=== PATIENT | female | born 1935 | race Caucasian/White ===

== ENCOUNTER 2019-12-13 23:03 | Inpatient (IN) | payer OTHER ==
[~2019-12-13] VITALS: Ht 144.8 cm; Wt 41.7 kg
--- NOTE | 2019-12-13 23:29 | NUR ---
BIBPA FOR [facility] PSYCH ADMISSION FROM [facility] PER GITA GAFFNEY. NEEDS PSYCH EVAL AND MED CLEARANCE BY . LINDSAY AAOX4. AMBULATORY. VSS. PLACED ON MONITOR AND PULSE OX.
[2019-12-13 23:48] LABS: BASOPHILS % (AUTO) 0.1 % (0.0-2.0); EOSINOPHILS % (AUTO) 0.4 % (0.0-6.0); HEMATOCRIT 43 % (33-45); HEMOGLOBIN 14.5 g/dL (11.5-14.8); LYMPHOCYTES # (AUTO) 0.9 /CMM (0.8-4.8); LYMPHOCYTES % (AUTO) 9.7 % (20.0-44.0); MEAN CORPUSCULAR HGB CONC 34 g/dl (31.0-36.0); MEAN CORPUSCULAR VOLUME 93 fL (82-100); MONOCYTES # (AUTO) 0.9 /CMM (0.1-1.30); MONOCYTES % (AUTO) 10.6 % (2.0-12.0); NEUTROPHILS # (AUTO) 7.1 /CMM (1.8-8.9); NEUTROPHILS % (AUTO) 79.2 % (43.0-81.0); PLATELET COUNT (AUTO) 177 /CMM (150-450); RED BLOOD CELL COUNT(AUTO) 4.64 MIL/uL (4.0-5.2); WHITE BLOOD COUNT (AUTO) 8.9 K/uL (4.3-11.0)
[2019-12-13 23:52] LABS: APPEARANCE,URINE Clear (CLEAR); BILIRUBIN,URINE MODERATE (NEGATIVE); BLOOD, URINE Small Ery/uL (NEGATIVE); COLOR,URINE Yellow (YELLOW); KETONES,URINE 15 (NEGATIVE); LEUKOCYTE ESTERASE ,URINE Trace (NEGATIVE); NITRITE, URINE Negative (NEGATIVE); PH,URINE 5.5 (5.0-8.0); PROTEIN,URINE 30 mg/dl (NEGATIVE); UGLUCOSE Negative (NEGATIVE)
--- NOTE | 2019-12-13 23:55 | NUR ---
COVID SWAB DONE AND SENT TO LAB
[2019-12-14 00:04] LABS: BACTERIA,URINE Many /HPF (None Seen); SQUAMOUS EPITHELIAL CELL,UR Few /HPF (None Seen); WBC,URINE 51-80 /HPF (0-3)
[2019-12-14 00:09] LABS: CALCIUM, SERUM 9.8 mg/dL (8.5-10.1); CARBON DIOXIDE 27 mmol/L (21-32); CHLORIDE 102 mmol/L (98-107); GLUCOSE 107 mg/dL (74-106); POTASSIUM 3.6 mmol/L (3.5-5.1); SODIUM SERUM 140 mmol/L (136-145); UREA NITROGEN, BLOOD 40 mg/dL (7-18)
[2019-12-14 00:14] LABS: ALANINE AMINOTRANSFERASE 19 U/L (12-78); ALBUMIN 3.9 g/dL (3.4-5.0); ALCOHOL, BLOOD < 3 mg/dL (0-0); ALKALINE PHOSPHATASE 65 U/L (46-116); ASPARTATE AMINOTRANSFERASE 18 U/L (15-37); BILIRUBIN,DIRECT 0.2 mg/dL (0.0-0.2); BILIRUBIN,TOTAL 0.8 mg/dL (0.2-1.0)
[2019-12-14 00:21] LABS: ACETAMINOPHEN < 2 ug/ml (10-30); SALICYLATE 1.5 mg/dL (2.8-20.0)
--- NOTE | 2019-12-14 00:57 | NUR ---
BIENVENIDO LUTZ LCSW PAGED PER ER ORDER.
--- NOTE | 2019-12-14 01:30 | NUR ---
BIENVENIDO HAUSERW AT BEDSIDE TO KISHA JACOBSEN.
--- NOTE | 2019-12-14 02:05 | NUR ---
PT RESTING COMFORTABLY IN BED. VSS. NO ACUTE DISTRESS NOTED. WILL CONTINUE TO MONITOR
[2019-12-14] MEDS ORDERED: LOSARTAN POTASSIUM 25 MG TABLET PO STA (02:29)
[2019-12-14] MEDS ORDERED: MIRT15TA PO (02:32)
[2019-12-14] MEDS ORDERED: QUET25TA PO ×2 (02:32)
[2019-12-14] MEDS ORDERED: LOSA25TA27 PO (02:32)
[2019-12-14] MEDS ORDERED: LEVO100T9 PO (02:32)
[2019-12-14] MEDS ORDERED: MELA3TAB41 PO (02:32)
[2019-12-14] MEDS ORDERED: LOSARTAN POTASSIUM 25 MG TABLET ONE (02:40)
--- NOTE | 2019-12-14 02:42 | NUR ---
MED LIST UPDATED.
--- NOTE | 2019-12-14 03:00 | NUR ---
REPORT GIVEN TO LILIAM HERNANDEZ FOR AV[facility]
--- NOTE | 2019-12-14 03:46 | NUR ---
PT TRANSFERRED TO ROOM IN STABLE CONDITION
[2019-12-14] MEDS ORDERED: ACETAMINOPHEN 325 MG TABLET PO PRN (04:00)
[2019-12-14] MEDS ORDERED: MAGNESIUM HYDROXIDE 30 ML UDC PO PRN (04:00)
[2019-12-14] MEDS ORDERED: MAG HYDROX/AL HYDROX/SIMETH 30 ML UDC PO PRN (04:00)
[2019-12-14] MEDS ORDERED: LORAZEPAM 0.5 MG TABLET PO PRN (04:00)
[2019-12-14 04:07] VITALS: BP 134/80
--- NOTE | 2019-12-14 04:25 | NUR ---
ADMISSION NOTES: ADMITTED THIS 84Y/O FEMALE PATIENT ADMIT FROM [facility] ED / INTIALLY FROM [facility],, ADMITTED TO GPS ON 5150 HOLD, PER HOLD DANGER TO OTHERS GD , INCREASED AGITATION STRIKING OUT BEHAVIOR AND HIT STAFF MEMBER IN THE FACE LAST WEEK, SCREAMING YELLING FIGHTING WITH STAFF MEMEBER,UPON FACE TO FACE ASSESSMENT PATIENT IS A&O X , 1,2 ANXIOUS ,DISORGNIZED PARANOID YELLING SCREAMING , TALKATIVE, HYPERVERBAL, PARANOID,DISHELVED ,EASILY GETS AGITATED,UNCOOPERTIVE, DENIES SI /HI AT THIS TIME, PT. IS POOR HISTORIAN, POOR INSIGHT ,POOR JUDGEMENT , PT. REFUSED TO SIGNS ADMISSION CONSENT PAPERS , DUE TO MENTAL STATUS / UNCOOPERTIVE AGITATION , PT. REFUSED INTITAALY BLOOD SUGAR CHECK , ENCOURAGED, EXPLAINED RISKS AND BENEFITS STILL REFUSED, PER PT. I DONT WANTS CHECK AT THIS TIME , BOTH MD AWARE AND NOTIFIED OF THE ADMISSION, BELONGINGS CONTRABAND WERE DONE , NURSING ASSESSMENT DONE ,PT. RIGHTS DISCUSS BY SATELLITE TELEVISION INSTALLER , PROVIDE THE PT. WITH HANDBOOK, AND MEDICATIONS GUIDE, ENVIRONMENTAL SAFETY CHECK DONE, ENCOURAGED PT. VERBALIZED ANY FEELING CONCERN TO STAFF, ORIENT TO UNIT POLICY, NO ACUTE DISTRESS NOTED,VITAL SIGNS WNL ,DENIES ANY PAIN AT THIS TIME,WILL CONTINUE TO MONITOR FOR Q15 SAFETY AND BEHAVIOR. Addendum: 12/14/19 at 0442 by JUAN GIBSON RN DISREGARD THIS NURSING NOTES, WRONG CHARTING , PLEASE SEE NEXT NURSING NOTES
--- NOTE | 2019-12-14 04:28 | NUR ---
ADMISSION NOTES: ADMITTED THIS 84Y/O MALE PATIENT ADMIT FROM [facility] ED / INTIALLY FROM [facility], ADMITTED TO GPS ON 5150 HOLD, GD , DISORGNIZED, PARANOID AND DELUSIONAL PT. THINKS THE FACILITY IS TRYING TO MAKE HER HOT AND HURT HER AND PT. THINKS PEOPLE AT THE FACILITY ARE OUT TO HURT HER, PT. HAS POOR INSIGHT AND IMPULSE CONTROL AND HER JUDEGMNET IS IMPARIED ,UPON FACE TO FACE ASSESSMENT PATIENT IS A&O X 1,2 ANXIOUS ,DISORGNIZED PARANOID , DELUSIONAL TALKATIVE, , PARANOID,DISHELVED ,EASILY GETS AGITATED,UNCOOPERTIVE, DENIES SI /HI AT THIS TIME, PT. IS POOR HISTORIAN, POOR INSIGHT ,POOR JUDGEMENT , PT. REFUSED TO SIGNS ADMISSION CONSENT PAPERS , DUE TO MENTAL STATUS / CONFUSION , BOTH MD AWARE AND NOTIFIED OF THE ADMISSION, BELONGINGS CONTRABAND WERE DONE , NURSING ASSESSMENT DONE ,PT. RIGHTS DISCUSS BY JOINTER SUBMARINE CABLE , PROVIDE THE PT. WITH HANDBOOK, AND MEDICATIONS GUIDE, ENVIRONMENTAL SAFETY CHECK DONE, ENCOURAGED PT. VERBALIZED ANY FEELING CONCERN TO STAFF, ORIENT TO UNIT POLICY, NO ACUTE DISTRESS NOTED,VITAL SIGNS WNL ,DENIES ANY PAIN AT THIS TIME,WILL CONTINUE TO MONITOR FOR Q15 SAFETY AND BEHAVIOR.
[2019-12-14] MEDS ORDERED: BLOOD SUGAR DIAGNOSTIC 1 EACH STRIP IN ONE (04:30)
[2019-12-14] MEDS ORDERED: AMLO5TAB9 PO (04:36)
[2019-12-14] MEDS ORDERED: CHOL200010 PO (04:39)
[2019-12-14] MEDS ORDERED: DOCU100C36 PO (04:43)
[2019-12-14] MEDS ORDERED: OLAN5TAB3 PO (04:45)
[2019-12-14] MEDS ORDERED: PEG15DRO2 OP (04:50)
[2019-12-14] MEDS ORDERED: VIT1CAPS44 PO (04:51)
--- NOTE | 2019-12-14 07:07 | NUR ---
GPS RN OPENING NOTES RECEIVED PATIENT RESTING IN BED AT THIS TIME, AOX1-2,NO SOB NOTED, NO S/S OF ANY ACUTE DISTRESS NOTED, NO C/O PAIN AT THIS TIME. PT IS COOPERATIVE AND CALM WITH CARE AND EASILY REDIRECTED. PATIENT APPEARS SUSPICIOUS AND ANXIOUS. PT DENIES SI/HI AT THIS TIME. ENVIRONMENTAL SAFETY CHECKS . SAFETY PRECAUTIONS IN PLACE AND MAINTAINED AT ALL TIMES, BED IN LOWEST LOCKED POSITION, SIDE RAILS UP, CALL LIGHT WITHIN REACH. WILL CONTINUE TO MONITOR Q 15 MIN, FOR SAFETY, MOOD,BEHAVIOR AND CONTINUE WITH PLAN OF CARE
[2019-12-14 08:00] VITALS: BP 163/80
[2019-12-14] MEDS: LEVOTHYROXINE SODIUM 100 MCG TABLET PO SCH (08:01)
[2019-12-14] MEDS: ENSURE ENLIVE CHOC 237 ML CAN PO SCH ×2 (08:01→16:51)
[2019-12-14] MEDS ORDERED: QUETIAPINE FUMARATE 25 MG TABLET PO SCH ×2 (09:00→22:00)
[2019-12-14] MEDS: Z GUARD REMEDY 2 OZ OINT TP SCH (09:57)
[2019-12-14] MEDS: OXCARBAZEPINE 150 MG TABLET PO SCH ×2 (12:39→16:50)
[2019-12-14] MEDS: risperiDONE-M 0.5 MG TAB.RAPDIS PO SCH ×2 (12:39→16:50)
--- NOTE | 2019-12-14 15:05 | NUR ---
Inittial Discharge Plan: The patient currently resides at [facility] [[address] [facility] [address]. [facility] [address]; [phone]]. The patient stated she was uncertain about returning to [facility]. HAYLEE called [facility] and spoke to [place], who stated the patient may return once ready for discharge.
--- NOTE | 2019-12-14 15:06 | NUR ---
Point of Contact: This SW called the patient's son, Eder Mcdonald [phone] to collect collateral information and discuss discharge polanning. Eder informed SW that he was the pt.'s DPOA in the past, however, patient revoked his POA abilities. Per Eder, the patient's daughter, Mattie Roac [phone] is not involved in the patient's care. Per Eder it is difficult for him to assist as he resides in the [facility] and pt. nay benefit from Public Guardian. Carli Rabbit DresserDianne to follow up with referral for Public Guardian.
--- NOTE | 2019-12-14 15:38 | NUR ---
DOCTOR SCHROEDER MADE AWARE TO RECONCILE PATIENTS' MEDICATIONS. WILL CONTINUE TO MONITOR
[2019-12-14 16:00] VITALS: BP 155/85
--- NOTE | 2019-12-14 18:47 | NUR ---
GPS RN CLOSING NOTES PATIENT AWAKE AND SITTING IN DINING ROOM AT THIS TIME. PT REMAINED STABLE THROUGHOUT SHIFT. PT KEPT CLEAN AND DRY. ALL CARE, NEEDS, MEDICATIONS AND TREATMENT ADMINISTERED ANTICIPATED PER ORDER. SAFETY PRECAUTIONS IN PLACE AND MAINTAINED AT ALL TIMES, BED IN LOWEST LOCKED POSITION, SIDE RAILS UP, CALL LIGHT WITHIN REACH. WILL ENDORSE TO HULL DRAFTER NURSE FOR AVNI
[2019-12-14] MEDS: CEPHALEXIN MONOHYDRATE 250 MG CAPSULE PO SCH (19:02)
--- NOTE | 2019-12-14 19:41 | NUR ---
GPS RN NOTES RECEIVED PATIENT AWAKE IN SAV[facility]NAH CHAIR BY DINING ROOM. PATIENT IS ALERT AND ORIENTED X 1-2. CONFUSION WITH PARANOIA WITH SUSPICIONS. PT IS BREATHING EVEN AND UNLABORED ON ROOM AIR. SHOWS NO SIGNS OF ACUTE RESPIRATORY DISTRESS, NO ACUTE PAIN. PATIENT IS NON- COMPLIANT WITH MEDICATIONS. DENIES SI/HI. SAFETY PRECAUTIONS IN PLACE. BED IN LOWEST POSITION, LOCKED, AND SIDE RAILS UP. WILL CONTINUE TO MONITOR.
[2019-12-14 21:07] VITALS: BP 102/62
[2019-12-14] MEDS: LOSARTAN POTASSIUM 25 MG TABLET PO SCH (21:20)
[2019-12-14] MEDS: AMLODIPINE BESYLATE 5 MG TABLET PO SCH (21:46)
[2019-12-14] MEDS ORDERED: MIRTAZAPINE 15 MG TABLET PO SCH (22:00)
[2019-12-15] MEDS: CEPHALEXIN MONOHYDRATE 250 MG CAPSULE PO SCH ×3 (06:05→21:50)
[2019-12-15] MEDS: LEVOTHYROXINE SODIUM 100 MCG TABLET PO SCH (06:05)
[2019-12-15 07:24] LABS: BASOPHILS % (AUTO) 0.1 % (0.0-2.0); EOSINOPHILS % (AUTO) 0.9 % (0.0-6.0); HEMATOCRIT 43 % (33-45); HEMOGLOBIN 14.1 g/dL (11.5-14.8); LYMPHOCYTES # (AUTO) 1.2 /CMM (0.8-4.8); LYMPHOCYTES % (AUTO) 13.7 % (20.0-44.0); MEAN CORPUSCULAR HGB CONC 33 g/dl (31.0-36.0); MEAN CORPUSCULAR VOLUME 93 fL (82-100); MONOCYTES % (AUTO) 11.3 % (2.0-12.0); NEUTROPHILS # (AUTO) 6.5 /CMM (1.8-8.9); PLATELET COUNT (AUTO) 156 /CMM (150-450); RED BLOOD CELL COUNT(AUTO) 4.58 MIL/uL (4.0-5.2); WHITE BLOOD COUNT (AUTO) 8.8 K/uL (4.3-11.0)
[2019-12-15 07:30] LABS: CALCIUM, SERUM 9.4 mg/dL (8.5-10.1); CREATININE 0.9 mg/dL (0.6-1.3); POTASSIUM 3.5 mmol/L (3.5-5.1)
[2019-12-15 08:00] VITALS: BP_SYST 151; BP_SYST 161; BP_DIAS 75
[2019-12-15] MEDS: ENSURE ENLIVE CHOC 237 ML CAN PO SCH ×2 (08:33→16:22)
[2019-12-15] MEDS: risperiDONE-M 0.5 MG TAB.RAPDIS PO SCH ×2 (08:33→16:22)
[2019-12-15] MEDS: OXCARBAZEPINE 150 MG TABLET PO SCH ×2 (08:33→16:21)
[2019-12-15] MEDS: Z GUARD REMEDY 2 OZ OINT TP SCH (09:04)
[2019-12-15 16:00] VITALS: BP 129/78
[2019-12-15 20:17] VITALS: BP 154/83
[2019-12-15] MEDS: LOSARTAN POTASSIUM 25 MG TABLET PO SCH (21:55)
[2019-12-15] MEDS: AMLODIPINE BESYLATE 5 MG TABLET PO SCH (21:56)
[2019-12-16] MEDS: CEPHALEXIN MONOHYDRATE 250 MG CAPSULE PO SCH ×3 (05:35→21:17)
[2019-12-16] MEDS: LEVOTHYROXINE SODIUM 100 MCG TABLET PO SCH (07:11)
[2019-12-16 08:00] VITALS: BP 154/81
[2019-12-16] MEDS: risperiDONE-M 0.5 MG TAB.RAPDIS PO SCH ×2 (08:30→16:56)
[2019-12-16] MEDS: OXCARBAZEPINE 150 MG TABLET PO SCH ×2 (08:30→16:56)
[2019-12-16] MEDS: ENSURE ENLIVE CHOC 237 ML CAN PO SCH ×2 (08:32→16:56)
[2019-12-16] MEDS: Z GUARD REMEDY 2 OZ OINT TP SCH (08:33)
--- NOTE | 2019-12-16 09:00 | NUR ---
RN NOTE- PT IN CHAIR FLAT AFFECT MINIMAL EYE CONTACT SLOW TO RESPOND COMPLAINING ABOUT TAKING MORNING RX STATES ' IM FULL, I CANT TAKE THAT STUFF. ITS TOO MUCH" HOWEVER PT IS MED COMPLIANT PO INTAKE FAIR PARANOID GUARDED TERELL ALL.
[2019-12-16 15:49] VITALS: BP 99/69
[2019-12-16 19:50] VITALS: BP 109/60
[2019-12-16] MEDS: AMLODIPINE BESYLATE 5 MG TABLET PO SCH (21:17)
[2019-12-16] MEDS: LOSARTAN POTASSIUM 25 MG TABLET PO SCH (21:18)
[2019-12-17] MEDS: CEPHALEXIN MONOHYDRATE 250 MG CAPSULE PO SCH ×3 (04:46→21:10)
[2019-12-17] MEDS: ENSURE ENLIVE CHOC 237 ML CAN PO SCH ×2 (07:50→16:26)
[2019-12-17] MEDS: LEVOTHYROXINE SODIUM 100 MCG TABLET PO SCH (07:51)
[2019-12-17 08:00] VITALS: BP 136/94
[2019-12-17] MEDS: risperiDONE-M 0.5 MG TAB.RAPDIS PO SCH ×3 (08:10→16:26)
[2019-12-17] MEDS: OXCARBAZEPINE 150 MG TABLET PO SCH ×3 (08:11→16:27)
[2019-12-17] MEDS: Z GUARD REMEDY 2 OZ OINT TP SCH (08:11)
--- NOTE | 2019-12-17 09:00 | NUR ---
RN NOTE- PARANOID, FEARFUL GUARDED MED COMPLIANT THOUGH IT TAKES AWHILE TO GT HER TO TAKE RX PO INTAKE GOOD USING BR W ASSIST DENIES SI HI AH VH BUT BEHAVIOR SHOWS OTHERWISE.
--- NOTE | 2019-12-17 12:53 | NUR ---
UR Note: This tag writer called and left a voicemail for Mercedes ( ) at [facility] covering for Tiffanie (ph:[phone] fax: [phone]) to follow up with authorization and clinicals. Waiting for a return call. Addendum: 12/17/19 at 1310 by JAY STOCK Authorization # [id number]
--- NOTE | 2019-12-17 13:12 | NUR ---
UR Note: Authorization # [id number] HAYLEE spoke with Mercedes ( ) [facility], (fax: [phone]) and faxed her the patient's clinicals, progress notes, medication and labs.
--- NOTE | 2019-12-17 15:04 | NUR ---
Group Note: SW invited patient to participate in group therapy to discuss the topic of Problem Solving. Patient presents confused, disoriented and disorganized and is unable to engage in a meaningful conversation. Patient did not participate in group at this time.
[2019-12-17 16:00] VITALS: BP 125/70
[2019-12-17 19:49] VITALS: BP 130/58
[2019-12-17] MEDS: LOSARTAN POTASSIUM 25 MG TABLET PO SCH (21:59)
[2019-12-17] MEDS: AMLODIPINE BESYLATE 5 MG TABLET PO SCH (22:00)
[2019-12-18] MEDS: CEPHALEXIN MONOHYDRATE 250 MG CAPSULE PO SCH ×3 (05:51→20:45)
[2019-12-18] MEDS: LEVOTHYROXINE SODIUM 100 MCG TABLET PO SCH (06:41)
[2019-12-18 08:00] VITALS: BP 161/87
[2019-12-18] MEDS: OXCARBAZEPINE 150 MG TABLET PO SCH ×3 (08:14→16:18)
[2019-12-18] MEDS: risperiDONE-M 0.5 MG TAB.RAPDIS PO SCH ×4 (08:15→20:45)
[2019-12-18] MEDS: Z GUARD REMEDY 2 OZ OINT TP SCH (08:18)
[2019-12-18] MEDS: ENSURE ENLIVE CHOC 237 ML CAN PO SCH ×2 (08:18→16:18)
--- NOTE | 2019-12-18 09:00 | NUR ---
RN NOTE- PT OPPOSITIONAL TO CARE THOUGH MED COMPLIANT, NEEDS ATTENDED, WITHDRAWN FEARFUL. PO INTAKE FAIR DENIES SI HI AH VH
--- NOTE | 2019-12-18 14:17 | NUR ---
UR Note: Authorization # [id number] SW left a voicemail for CristalShizzlrjamey ( ) [facility], (fax: [phone]) and faxed her the patient's clinical progress notes, medication and labs.
[2019-12-18] MEDS: MEMANTINE HCL 5 MG TABLET PO SCH ×2 (14:23→20:45)
--- NOTE | 2019-12-18 15:40 | NUR ---
Group Note: SW encouraged pt to attend group therapy on 12/18/19 on the topic of discharge planning. Pt refused to attend but was willing to speak individually. Pt stated that she did not feel safe on the unit and wanted to be discharged as soon as possible so that she can go somewhere safe.
[2019-12-18 16:00] VITALS: BP 130/75
[2019-12-18 19:52] VITALS: BP 118/62
[2019-12-18] MEDS: AMLODIPINE BESYLATE 5 MG TABLET PO SCH (22:59)
[2019-12-18] MEDS: LOSARTAN POTASSIUM 25 MG TABLET PO SCH (22:59)
[2019-12-18] MEDS: TEMAZEPAM 7.5 MG CAPSULE PO PRN (23:00)
[2019-12-19] MEDS: CEPHALEXIN MONOHYDRATE 250 MG CAPSULE PO SCH ×3 (05:13→20:55)
[2019-12-19] MEDS: LEVOTHYROXINE SODIUM 100 MCG TABLET PO SCH (07:00)
[2019-12-19 08:00] VITALS: BP 141/66
[2019-12-19] MEDS: ENSURE ENLIVE CHOC 237 ML CAN PO SCH ×2 (08:00→17:00)
[2019-12-19] MEDS: MEMANTINE HCL 5 MG TABLET PO SCH ×2 (09:34→20:55)
[2019-12-19] MEDS: Z GUARD REMEDY 2 OZ OINT TP SCH (09:34)
[2019-12-19] MEDS: OXCARBAZEPINE 150 MG TABLET PO SCH ×3 (09:34→17:49)
[2019-12-19] MEDS: risperiDONE-M 0.5 MG TAB.RAPDIS PO SCH ×4 (09:34→20:55)
--- NOTE | 2019-12-19 11:16 | NUR ---
Group Note: SW encouraged pt to participate in group on the topic of dealing with anxiety. Patient was talking on the telephone and did not want to participate at this time.
[2019-12-19 16:00] VITALS: BP 144/79
[2019-12-19 19:28] VITALS: BP 149/76
[2019-12-19] MEDS: LOSARTAN POTASSIUM 25 MG TABLET PO SCH (22:17)
[2019-12-19] MEDS: AMLODIPINE BESYLATE 5 MG TABLET PO SCH (22:17)
[2019-12-19] MEDS: TEMAZEPAM 7.5 MG CAPSULE PO PRN (22:30)
[2019-12-20] MEDS: CEPHALEXIN MONOHYDRATE 250 MG CAPSULE PO SCH ×3 (05:46→21:30)
[2019-12-20] MEDS: LEVOTHYROXINE SODIUM 100 MCG TABLET PO SCH (06:19)
[2019-12-20 08:00] VITALS: BP 158/94
[2019-12-20] MEDS: ENSURE ENLIVE CHOC 237 ML CAN PO SCH ×2 (08:37→17:09)
[2019-12-20] MEDS: Z GUARD REMEDY 2 OZ OINT TP SCH (08:38)
[2019-12-20] MEDS: risperiDONE-M 0.5 MG TAB.RAPDIS PO SCH ×4 (08:38→21:30)
[2019-12-20] MEDS: MEMANTINE HCL 5 MG TABLET PO SCH ×2 (08:38→21:31)
[2019-12-20] MEDS: OXCARBAZEPINE 150 MG TABLET PO SCH ×3 (08:38→17:08)
[2019-12-20 16:00] VITALS: BP 116/66
[2019-12-20 20:08] VITALS: BP 130/71
[2019-12-20] MEDS: LOSARTAN POTASSIUM 25 MG TABLET PO SCH (21:54)
[2019-12-20] MEDS: AMLODIPINE BESYLATE 5 MG TABLET PO SCH (21:55)
[2019-12-20] MEDS: TEMAZEPAM 7.5 MG CAPSULE PO PRN (22:06)
--- NOTE | 2019-12-20 22:14 | NUR ---
GPS RN NOTES: AT 2200 PATIENT COMPLAINED OF INSOMNIA. RESTORIL 7.5MG 1 CAP GIVEN PO PRN AT 2206. WILL CONTINUE TO MONITOR.
[2019-12-21] MEDS: CEPHALEXIN MONOHYDRATE 250 MG CAPSULE PO SCH ×2 (05:14→13:03)
[2019-12-21] MEDS: LEVOTHYROXINE SODIUM 100 MCG TABLET PO SCH (07:05)
[2019-12-21] MEDS: risperiDONE-M 0.5 MG TAB.RAPDIS PO SCH ×2 (07:44→16:36)
[2019-12-21] MEDS: OXCARBAZEPINE 150 MG TABLET PO SCH ×3 (07:44→16:36)
[2019-12-21] MEDS: ENSURE ENLIVE CHOC 237 ML CAN PO SCH ×2 (07:45→16:35)
[2019-12-21] MEDS: Z GUARD REMEDY 2 OZ OINT TP SCH (07:45)
[2019-12-21] MEDS: MEMANTINE HCL 5 MG TABLET PO SCH ×2 (07:45→21:35)
[2019-12-21 08:30] VITALS: BP 159/78
--- NOTE | 2019-12-21 11:14 | NUR ---
UR NOTE: HAYLEE contacted Tiffanie trimming caser at [facility] ([phone]) and left a voicemail requesting a call back to provide updated information.
--- NOTE | 2019-12-21 12:44 | NUR ---
FACILITY CONTACT: HAYLEE contacted [facility] [[address] [address]. [facility] [address]; [phone]] and spoke with Anjelica, clinical social work therapist to inform her pt will be discharged on Tuesday12/24/19. Per Anjelica, she is requiring a recent COVID test and agrees with discharge plan.
--- NOTE | 2019-12-21 12:54 | NUR ---
UR NOTE: HAYLEE contacted Tiffanie, case management assistant at [facility] ([phone]) and informed her pt will discharged on Tuesday12/24/19. Per Beata she will arrange for transportation at 1:00pm and also requested prescriptions be faxed to .
--- NOTE | 2019-12-21 12:58 | NUR ---
FAMILY CONTACT: HAYLEE called pts son, Eder Mcdonald [phone] and left a voicemail informing him pt will be discharged on Tuesday12/24/19 at 1:00pm back to the assisted living.
[2019-12-21 16:00] VITALS: BP 151/76
--- NOTE | 2019-12-21 18:22 | NUR ---
GPS/RN pt refused covid 19 swab offered x3. will endorse to material handler 2nd shift to follow up
[2019-12-21 19:39] VITALS: BP 149/81
[2019-12-21] MEDS: risperiDONE 1 MG TABLET PO SCH (21:35)
[2019-12-21] MEDS: AMLODIPINE BESYLATE 5 MG TABLET PO SCH (21:35)
[2019-12-21] MEDS: LOSARTAN POTASSIUM 25 MG TABLET PO SCH (21:36)
--- NOTE | 2019-12-22 05:56 | NUR ---
GPS RN NOTE: ASKED PT. FOR THE COVID ANTIGEN SWAB. PT. REFUSED. OFFERED 3 TIMES AND PT STATES " SHE DOES NOT WANT TO." WILL ENDORSE TO DAY SHIFT NURSE.
[2019-12-22 08:00] VITALS: BP 133/64
[2019-12-22] MEDS: ENSURE ENLIVE CHOC 237 ML CAN PO SCH ×2 (08:42→17:14)
[2019-12-22] MEDS: risperiDONE-M 0.5 MG TAB.RAPDIS PO SCH ×3 (08:45→17:14)
[2019-12-22] MEDS: LEVOTHYROXINE SODIUM 100 MCG TABLET PO SCH (08:45)
[2019-12-22] MEDS: MEMANTINE HCL 5 MG TABLET PO SCH ×2 (08:45→21:00)
[2019-12-22] MEDS: OXCARBAZEPINE 150 MG TABLET PO SCH ×3 (08:45→17:14)
[2019-12-22] MEDS: Z GUARD REMEDY 2 OZ OINT TP SCH (08:45)
[2019-12-22 16:00] VITALS: BP 143/76
[2019-12-22] MEDS: busPIRone 5 MG TABLET PO SCH (17:14)
--- NOTE | 2019-12-22 18:13 | NUR ---
GPS/RN PT REFUSED COVID 19 TEST. OFFERED X3
[2019-12-22 20:22] VITALS: BP 142/65
[2019-12-22] MEDS: risperiDONE 1 MG TABLET PO SCH (21:00)
[2019-12-22] MEDS: AMLODIPINE BESYLATE 5 MG TABLET PO SCH (21:53)
[2019-12-22] MEDS: LOSARTAN POTASSIUM 25 MG TABLET PO SCH (21:53)
--- NOTE | 2019-12-22 22:02 | NUR ---
GPS RN NOTE: PT. REFUSED ALL SCHEDULED NIGHT MEDICATIONS, 2100 NAMENDA 10MG, RISPERDAL 1MG AND 2200 COZAAR 75 MG, NORVASC 5 MG. EXPLAINED RISKS AND BENEFITS. OFFERED 3 TIMES AND PT. STILL REFUSED. WILL CONTINUE TO MONITOR FOR SAFETY AND BEHAVIOR.
[2019-12-23] MEDS: LEVOTHYROXINE SODIUM 100 MCG TABLET PO SCH (07:51)
[2019-12-23 08:00] VITALS: BP 163/90
[2019-12-23] MEDS: busPIRone 5 MG TABLET PO SCH ×2 (08:42→16:46)
[2019-12-23] MEDS: ENSURE ENLIVE CHOC 237 ML CAN PO SCH ×2 (08:42→16:46)
[2019-12-23] MEDS: Z GUARD REMEDY 2 OZ OINT TP SCH (08:43)
[2019-12-23] MEDS: risperiDONE-M 0.5 MG TAB.RAPDIS PO SCH ×3 (08:43→16:46)
[2019-12-23] MEDS: MEMANTINE HCL 5 MG TABLET PO SCH ×2 (08:43→21:42)
[2019-12-23] MEDS: OXCARBAZEPINE 150 MG TABLET PO SCH ×3 (08:43→16:46)
--- NOTE | 2019-12-23 09:00 | NUR ---
RN NOTE- PT ALERT CONFUSED DISORIENTED MED COMPLIANT THIS MORNING W [employer]. PT PO INTAKE FAIR MONITORING FOR SAFETY REALITY ORIENTATION PRN
[2019-12-23 15:50] VITALS: BP 111/65
[2019-12-23 16:48] LABS: BASOPHILS % (AUTO) 0.2 % (0.0-2.0); EOSINOPHILS % (AUTO) 0.8 % (0.0-6.0); HEMATOCRIT 42 % (33-45); LYMPHOCYTES # (AUTO) 0.9 /CMM (0.8-4.8); LYMPHOCYTES % (AUTO) 8.7 % (20.0-44.0); MEAN CORPUSCULAR HGB CONC 33 g/dl (31.0-36.0); MEAN CORPUSCULAR VOLUME 93 fL (82-100); MONOCYTES # (AUTO) 1.6 /CMM (0.1-1.30); MONOCYTES % (AUTO) 16.1 % (2.0-12.0); NEUTROPHILS # (AUTO) 7.5 /CMM (1.8-8.9); NEUTROPHILS % (AUTO) 74.2 % (43.0-81.0); PLATELET COUNT (AUTO) 188 /CMM (150-450); RED BLOOD CELL COUNT(AUTO) 4.55 MIL/uL (4.0-5.2)
[2019-12-23 17:00] LABS: ALBUMIN 3.4 g/dL (3.4-5.0); BILIRUBIN,TOTAL 0.3 mg/dL (0.2-1.0); CALCIUM, SERUM 9.7 mg/dL (8.5-10.1); CREATININE 0.8 mg/dL (0.6-1.3); MAGNESIUM 2.5 mg/dL (1.8-2.4); POTASSIUM 4.7 mmol/L (3.5-5.1); TOTAL PROTEIN, SERUM 7.1 g/dL (6.4-8.2)
[2019-12-23 17:38] LABS: LYMPHOCYTES % (MANUAL) 8 % (16-48); MONOCYTES % (MANUAL) 12 % (0-11.0); NEUTROPHILS % (MANUAL) 79 (42-76); REACTIVE LYMPHOCYTES 1 % (0-0)
[2019-12-23 20:00] VITALS: BP_SYST 123; BP_SYST 142; BP_DIAS 65; BP_DIAS 68
[2019-12-23] MEDS: risperiDONE 1 MG TABLET PO SCH (21:42)
[2019-12-23] MEDS: AMLODIPINE BESYLATE 5 MG TABLET PO SCH (22:25)
[2019-12-23] MEDS: LOSARTAN POTASSIUM 25 MG TABLET PO SCH (22:26)
[2019-12-24] MEDS: LEVOTHYROXINE SODIUM 100 MCG TABLET PO SCH ×2 (07:58→08:47)
[2019-12-24 08:00] VITALS: BP 133/77
[2019-12-24] MEDS: OXCARBAZEPINE 150 MG TABLET PO SCH ×2 (08:47→12:09)
[2019-12-24] MEDS: MEMANTINE HCL 5 MG TABLET PO SCH (08:48)
[2019-12-24] MEDS: ENSURE ENLIVE CHOC 237 ML CAN PO SCH (08:48)
[2019-12-24] MEDS: busPIRone 5 MG TABLET PO SCH (08:48)
[2019-12-24] MEDS: risperiDONE-M 0.5 MG TAB.RAPDIS PO SCH ×2 (08:48→12:09)
[2019-12-24] MEDS: Z GUARD REMEDY 2 OZ OINT TP SCH (08:49)
--- NOTE | 2019-12-24 10:11 | NUR ---
DISCHARGE NOTE: Pt will be discharged at 1:00pm via facility transportation to [facility] [address] [address]. [facility] [address]; [phone]. Pts son, Eder Mcdonald [phone] has been notified via voicemail. RN faxed Prescriptions to Beata, nurse case manager with [facility] . Pts mood is labile with congruent affect. Pt denied visual/auditory hallucinations and denied suicidal/homicidal ideation. Pt will be following up with Psychiatrist: Dr. Piper Mix [address] [address] and Ophthalmic Surgical Assistant: [facility] Address: [address] [place] [address] . The multidisciplinary exit care form was done, printed, signed, and given to the patient.
--- NOTE | 2019-12-24 15:50 | NUR ---
RN NOTE- PT DISCHARGED TO THE [facility] AT THIS TIME VIA GURNEY AND AMBULANCE. PT VS STABLE, ALERT ORIENTED TO PERSON PLACE AND SITUATION. SOME CONFUSION PRESENT. CURRENTLY DENIES SI HI AH CH. VS STABLE. DC PLANNING DONE AND REVIEWED W AMBULANCE STAFF. AFTERCARE REPORTS PROVIDED. VALUABLES RETURNED AND SIGNED FOR. ID [id number] REMOVED. ESCORTED OUT OF UNIT BY STAFF.
== END 2019-12-24 15:50 | DRG 885 ==
LOC: ER 23:10 → GPS 12-14 02:18
PROVIDERS: ADMIT Psychiatry & Neurology Psychosomatic Medicine; ATTEND Nurse Practitioner Acute Care
DX: F25.9 Schizoaffective disorder, unspecified (principal); F01.50 Vascular dementia, unspecified severity, without behavioral disturbance, psychotic disturbance, mood disturbance, and anxiety; N39.0 Urinary tract infection, site not specified; F29 Unspecified psychosis not due to a substance or known physiological condition; I10 Essential (primary) hypertension; E03.9 Hypothyroidism, unspecified; M19.90 Unspecified osteoarthritis, unspecified site; M81.0 Age-related osteoporosis without current pathological fracture; Z73.6 Limitation of activities due to disability
CPT/HCPCS: 36415; 70450-TC; 80048-TC; 80053-TC; 80061-TC; 80076-TC; 80305; 81000-TC; 82962-TC; 83735-TC; 85025-TC; 87081-TC; 87086-TC; 97116-TC; 97530-TC; G0480